=== PATIENT | male | born 1950 | race Two or more races ===

== ENCOUNTER 2023-01-20 17:25 | Emergency (ER) | payer MEDICARE, OTHER ==
[~2023-01-20] VITALS: Ht 180.3 cm; Wt 81.6 kg
[2023-01-20 18:29] LABS: HEMATOCRIT 34.1 % (36.7-47.1); MEAN CORPUSCULAR HEMOGLOBIN 31.2 uug (23.8-33.4); MEAN CORPUSCULAR VOLUME 92.4 fL (73.0-96.2); PLATELET COUNT (AUTO) 238 K/uL (152-348)
[2023-01-20 18:35] LABS: POTASSIUM 4.3 mmol/L (3.5-5.1)
[2023-01-20 18:41] LABS: BILIRUBIN,DIRECT 0.1 mg/dL (0.0-0.2); BILIRUBIN,TOTAL 0.3 mg/dL (0.2-1.0); TOTAL PROTEIN, SERUM 6.5 g/dL (6.4-8.2)
[2023-01-20] MEDS ORDERED: IV NORMAL SALINE 500 ML BAG IV ONE (19:00)
--- NOTE | 2023-01-20 19:36 | NUR ---
Patient resting in bed, updated on plan of care at this time. IVF started at this time and placed on monitor, no s/s of any distress noted, will continue to monitor.
--- NOTE | 2023-01-20 21:16 | NUR ---
Sitting up at bedside states ready to go, informed ER provider. No voiced c/o pain or discomfort at this time.
[2023-01-20 21:45] VITALS: BP 103/54; O2SAT 98
--- NOTE | 2023-01-20 21:45 | NUR ---
ACI given remains stable for discharge home with family.
== END 2023-01-20 21:46 | disposition home or self-care (01) ==
LOC: ER 17:25
DX: R19.7 Diarrhea, unspecified (principal); E11.9 Type 2 diabetes mellitus without complications
CPT/HCPCS: 36415; 83690; 85025; A4663